=== PATIENT | male | born 1985 | race Hispanic/Latino ===

== ENCOUNTER 2018-06-17 10:37 | Inpatient (IN) | payer SELFPAY ==
[~2018-06-17] VITALS: Ht 167.6 cm; Wt 93.0 kg
[2018-06-17] MEDS ORDERED: KETOROLAC TROMETHAMINE 30MG/ML ONE (11:28)
[2018-06-17] MEDS ORDERED: DEXAMETHASONE SOD PHOSPHATE 10MG/ML 1ML VIAL ONE (11:28)
[2018-06-17 11:50] LABS: BASOPHILS % (AUTO) 0.6 % (0.0-5.0); EOSINOPHILS % (AUTO) 0.5 % (0.0-8.0); LYMPHOCYTES % (AUTO) 11.8 % (21.0-51.0); MEAN CORPUSCULAR HEMOGLOBIN 31.8 pg (27.0-33.0); MONOCYTES % (AUTO) 11.9 % (3.0-13.0); NEUTROPHILS % (AUTO) 75.2 % (40.0-77.0); PLATELET COUNT (AUTO) 193 K/uL (130-400); RED BLOOD CELL COUNT(AUTO) 4.28 MIL/uL (4.50-6.20); RED CELL DISTRIBUTION WIDTH 12.9 % (11.0-15.5); WHITE BLOOD COUNT (AUTO) 8.2 K/uL (4.8-10.8)
[2018-06-17] MEDS ORDERED: IOHEXOL-350 50ML VIAL IV ONE (12:11)
[2018-06-17] MEDS ORDERED: CLINDAMYCIN 600 MG/D5% WATER 50 ML IV ONE (15:08)
[2018-06-17] MEDS ORDERED: HYDRALAZINE HCL 20 MG/ML VIAL IV PRN (15:30)
[2018-06-17] MEDS ORDERED: ACETAMINOPHEN 325 MG TAB PO PRN (15:30)
[2018-06-17] MEDS: CLINDAMYCIN 600 MG/D5% WATER 50 ML IV SCH ×2 (15:30→23:29)
[2018-06-17] MEDS ORDERED: LACTULOSE 20 GM/30 ML UDCUP PO PRN (15:30)
[2018-06-17] MEDS ORDERED: ONDANSETRON HCL 4 MG/2 ML VIAL IV PRN (15:30)
[2018-06-17 16:26] VITALS: BP 142/79
[2018-06-17 19:37] VITALS: BP_SYST 151; BP_SYST 157; BP_DIAS 86
[2018-06-17] MEDS: DEXAMETHASONE SOD PHOSPHATE 4 MG/ML 1ML VIAL IVP SCH (21:39)
[2018-06-17] MEDS: FAMOTIDINE/PF 20 MG/2 ML VIAL IV SCH (21:39)
[2018-06-17 23:00] VITALS: BP 149/90
[2018-06-18 04:00] VITALS: BP 112/87
[2018-06-18 05:27] LABS: MEAN CORPUSCULAR HEMOGLOBIN 32.2 pg (27.0-33.0); MEAN CORPUSCULAR HGB CONC 35.2 g/dL (32.0-36.0); MEAN CORPUSCULAR VOLUME 91.6 fL (79-99); PLATELET COUNT (AUTO) 199 K/uL (130-400); RED BLOOD CELL COUNT(AUTO) 3.93 MIL/uL (4.50-6.20); RED CELL DISTRIBUTION WIDTH 12.5 % (11.0-15.5); WHITE BLOOD COUNT (AUTO) 9.4 K/uL (4.8-10.8)
[2018-06-18] MEDS: DEXAMETHASONE SOD PHOSPHATE 4 MG/ML 1ML VIAL IVP SCH ×2 (05:27→13:55)
[2018-06-18 05:38] LABS: CREATININE 1.1 mg/dL (0.5-1.5); CRP QUANTITATIVE 146.8 mg/L (0.00-9.0); POTASSIUM 3.9 mmol/L (3.5-5.1)
[2018-06-18 06:23] LABS: ERYTHROCYTE SEDIMENTATION RATE 92 MM/HR (0-15)
[2018-06-18] MEDS: CLINDAMYCIN 600 MG/D5% WATER 50 ML IV SCH ×2 (06:37→15:29)
[2018-06-18 07:31] VITALS: BP 142/66
[2018-06-18] MEDS ORDERED: ENOXAPARIN SODIUM 40 MG/0.4 ML SYRINGE SQ SCH (09:00)
[2018-06-18] MEDS: FAMOTIDINE/PF 20 MG/2 ML VIAL IV SCH (10:16)
[2018-06-18 11:33] VITALS: BP 154/96
--- NOTE | 2018-06-18 15:19 | NUR ---
DCP CM met with pt discussed dc plans. Pt is independent, lives at home with spouse. Denies any equipments/services. Pt feels safe to go back home, still drives and works, spouse able to assist with transportation and needs as necessary. DC plan to home once stable. CM to cont to follow up. Addendum: 06/18/18 at 1520 by NENA HU LVN CM Amended: Links added.
[2018-06-18 16:22] VITALS: BP 144/93
[2018-06-18] MEDS ORDERED: DEXA4 PO (17:30)
[2018-06-18] MEDS ORDERED: CLIN300C9 PO (17:30)
== END 2018-06-18 18:46 | disposition home or self-care (01) | DRG 153 ==
LOC: EDH 10:37 → EDHIP 10:38 → OBSVTOIN 10:38 → EDHIP 15:21 → UNDOADMOB 15:21 → 4BH 16:11
PROVIDERS: ADMIT Internal Medicine; ATTEND Internal Medicine
DX: J02.9 Acute pharyngitis, unspecified (principal); R59.1 Generalized enlarged lymph nodes; R00.0 Tachycardia, unspecified; Z88.0 Allergy status to penicillin
CPT/HCPCS: 36415; 70491; 80048; 85025; 85027; 85651; 86140; 87040; 87880; G0378; J1100; J1650; J1885; J3490; Q9967

== ENCOUNTER 2019-04-21 02:52 | Emergency (ER) | payer OTHER ==
[~2019-04-21 02:52] MED LIST: CLIN300C9 PO; DEXA4 PO
[2019-04-21] MEDS ORDERED: HYDROXYZINE HCL 25 MG TABLET ONE (03:53)
[2019-04-21] MEDS ORDERED: CLINDAMYCIN HCL 150 MG CAP ONE (03:53)
[2019-04-21] MEDS ORDERED: DEXAMETHASONE SOD PHOSPHATE 10MG/ML 1ML VIAL ONE (03:56)
== END 2019-04-21 04:07 | disposition home or self-care (01) ==
LOC: EDH 02:52
DX: J01.90 Acute sinusitis, unspecified (principal); L29.9 Pruritus, unspecified; Z88.0 Allergy status to penicillin; Z72.0 Tobacco use
CPT/HCPCS: 99284; J1100